=== PATIENT | male | born 1965 | race African-American/Black ===

== ENCOUNTER → 2017-07-15 | Outpatient (CLI) | payer BC ==
--- NOTE | 2017-07-15 15:01 | RADIOLOGY REPORT (SQ) ---
EXAM DESCRIPTION: U/S EXTREMITY NONVASCULAR LTD COMPLETED DATE/TIME: 07/15/2017 10:20 am REASON FOR STUDY: (L02.411)CUTANEOUS ABSCESS OF RIGHT AXILLA L02.411 CUTANEOUS ABSCESS OF RIGHT AXI LLA COMPARISON: None. TECHNIQUE: Static and real time hurst scale ultrasound Doppler spectral analysis, and color Doppler a cquired in the right axilla with comparison imaging of the left LIMITATIONS: None. FINDINGS: Ultrasound of the right axilla was performed. No adenopathy. No abscess. No focal fluid collections. No masses. Normal axillary artery and vein. Comparison imaging of the left axilla is unremarkable. IMPRESSION: NO SIGNIFICANT FINDING IN THE RIGHT AXILLA TECHNICAL DOCUMENTATION: JOB ID: [id number] [employer]- All Rights Reserved
== END ==
LOC: RAD 09:11
PROVIDERS: ATTEND Family Medicine
DX: L02.411 Cutaneous abscess of right axilla (principal)
CPT/HCPCS: 76882

== ENCOUNTER → 2017-08-11 | Outpatient (CLI) | payer BC ==
--- NOTE | 2017-08-11 09:17 | RADIOLOGY REPORT (SQ) ---
EXAM DESCRIPTION: U/S RETROPERITON (RENAL/AORTA) COMPLETED DATE/TIME: 08/11/2017 8:23 am REASON FOR STUDY: ABN KIDNEY FUNCTION STUDIES (R94.4) R94.4 ABNORMAL RESULTS OF KIDNEY FUNCTION NOEMI DIES COMPARISON: None. TECHNIQUE: Dynamic and static grayscale images acquired of the kidneys and bladder and recorded on P ACS. Additional selected color Doppler and spectral images recorded. LIMITATIONS: Sub optimal visualization left kidney. FINDINGS: RIGHT KIDNEY: Normal size. Normal echogenicity. No solid or suspicious masses. No hydronep hrosis. No calcifications. LEFT KIDNEY: Normal size. Normal echogenicity. No solid or suspicious masses. No hydronephrosis. No calcifications. BLADDER: No masses. OTHER FINDINGS: Echogenic roughly ovoid mass in the right lobe of the liver measures 5 cm. Potential hemangioma. Further dedicated liver imaging to include either CT or MRI should be considered. IMPRESSION: 1. Unremarkable appearance of the kidneys as assessed. 2. Probable large liver hemangio ma. Dedicated liver CT or MRI recommended. TECHNICAL DOCUMENTATION: JOB ID: [id number]- All Rights Reserved
== END ==
LOC: RAD 07:51
PROVIDERS: ATTEND Physician Assistant
DX: R94.4 Abnormal results of kidney function studies (principal)
CPT/HCPCS: 76770

== ENCOUNTER → 2017-08-18 | Outpatient (CLI) | payer BC ==
--- NOTE | 2017-08-18 13:56 | RADIOLOGY REPORT (SQ) ---
EXAM DESCRIPTION: MRI ABDOMEN WITHOUT COMPLETED DATE/TIME: 08/18/2017 9:29 am REASON FOR STUDY: OTHERSPECIFIED DIEASES OF LIVER K76.89 OTHER SPECIFIED DISEASES OF LIVER COMPARISON: None. TECHNIQUE: T1 N0 phase, T2, T2 fat sat weighted sequences with attention to the liver. No intraveno us contrast. Images saved to PACs. LIMITATIONS: No contrast. FINDINGS: ADRENAL GLANDS: Normal configuration. No mass. GALLBLADDER: No masses. No stones. No gallbladder wall thickening or pericholecystic fluid. LIVER AND BILIARY STRUCTURES: There are 2 well-circumscribed lesions in the liver which are bright on T2, the largest in the posterior segment of the right lobe 2.7 x 6.0 cm. No biliary dilatation. SPLEEN: Normal. PANCREAS: Normal. Peripancreatic tissues normal. PERITONEUM: No ascites, gross adenopathy or implants. OTHER: No other significant finding. IMPRESSION: Hepatic lesions, most likely benign hemangiomas, however not further characterized witho ut contrast. TECHNICAL DOCUMENTATION: JOB ID: [id number] [employer]- All Rights Reserved
== END ==
LOC: RAD 08:28
PROVIDERS: ATTEND Physician Assistant
DX: K76.89 Other specified diseases of liver (principal)
CPT/HCPCS: 74181

== ENCOUNTER → 2017-12-15 | Outpatient (CLI) | payer BC ==
--- NOTE | 2017-12-15 10:22 | RADIOLOGY REPORT (SQ) ---
EXAM DESCRIPTION: U/S ABDOMEN LIMITED W/O DOP COMPLETED DATE/TIME: 12/15/2017 8:54 am REASON FOR STUDY: LIVER MASS (R16.0) R16.0 HEPATOMEGALY, NOT ELSEWHERE CLASSIFIED COMPARISON: MRI 08/18/2017. TECHNIQUE: Dynamic and static grayscale images acquired of the abdomen and recorded on PACS. Additio nal selected color Doppler and spectral images recorded. LIMITATIONS: None. FINDINGS: PANCREAS: No masses. Visualized pancreatic duct normal caliber. LIVER: There are 2 discrete echogenic lesions in the right lobe of the liver. The larger measures ap proximately 6.2 x 5.7 x 4.2 cm. The smaller lesion measures 2.6 x 1.7 x 2 cm. No new lesion suggest ed. LIVER VASCULATURE: Normal directional flow of the main portal vein and hepatic veins. GALLBLADDER: No gallstones or wall thickening. ULTRASOUND-DETECTED CLARK'S SIGN: Negative. INTRAHEPATIC DUCTS AND COMMON DUCT:CBD and intrahepatic ducts normal caliber. No filling defects. INFERIOR VENA CAVA: Normal flow. AORTA: No aneurysm. RIGHT KIDNEY: Normal size. Normal echogenicity. No solid or suspicious masses. No hydronephrosis. No calcifications. PERITONEAL AND PLEURAL SPACES: No ascites or effusions. OTHER: No other significant finding. IMPRESSION: 1. 2 masses are once again seen in the liver. Echogenic appearance, likely hemangiomas . If there is clinical need to further confirm and characterize these lesions, dedicated liver MRI o r CT to include multiphase contrast administration would be appropriate. TECHNICAL DOCUMENTATION: JOB ID: [id number] [employer]- All Rights Reserved Reading location - IP/workstation name: [email or web address]
== END ==
LOC: RAD 07:41
PROVIDERS: ATTEND Family Medicine
DX: R16.0 Hepatomegaly, not elsewhere classified (principal)
CPT/HCPCS: 76705

== ENCOUNTER → 2018-09-27 | Outpatient (CLI) | payer BC ==
--- NOTE | 2018-09-27 12:33 | RADIOLOGY REPORT (SQ) ---
EXAM DESCRIPTION: MRI ABDOMEN COMBO COMPLETED DATE/TIME: 09/27/2018 10:59 am REASON FOR STUDY: HEMANGIOMA OF INTRA ABD D18.03 HEMANGIOMA OF INTRA-ABDOMINAL STRUCTURES K76.89 O THER SPECIFIED DISEASES OF LIVER COMPARISON: Bilateral renal ultrasound 08/11/2017 Abdominal ultrasound 12/15/2017 MRI abdomen 09/05/2017 TECHNIQUE: Multiplanar multisequence imaging performed without and with contrast including sagittal, axial and coronal T2, axial T1, axial gradient fat sat T1, axial, sagittal and coronal fat sat T1 po st contrast. CONTRAST TYPE AND DOSE: 20 mL Dot[employer]. RENAL FUNCTION: Estimated GFR 57 LIMITATIONS: None. FINDINGS: LIVER: Normal size. No dilated ducts. CBD normal. Stable benign hemangiomas in the right lobe liver, 6 x 3 cm in the posterior right lobe liver, 2 x 1.3 cm in size in the sub- diaphragmatic surface right lobe liver. There is characteristic peripheral nodular enhancement of these lesions wi th contrast. SPLEEN: Normal size. No focal lesions. PANCREAS: No masses. No adjacent inflammation or peripancreatic fluid collections. Pancreatic duct no t dilated. GALLBLADDER: No masses. No stones. No gallbladder wall thickening or pericholecystic fluid. ADRENAL GLANDS: No significant masses or asymmetry. RIGHT KIDNEY AND URETER: No masses. No hydronephrosis. LEFT KIDNEY AND URETER: No masses. No hydronephrosis. AORTA AND VESSELS: No aneurysm. No dissection. Renal arteries, SMA, celiac without stenosis. RETROPERITONEUM: No retroperitoneal adenopathy, hemorrhage or masses. BOWEL: Not well seen ABDOMINAL WALL AND PERITONEUM: No hernias. No free fluid. BONES: No acute or significant findings. OTHER: No other significant finding. IMPRESSION: Benign hemangiomas in the right lobe liver, similar compared to previous. TECHNICAL DOCUMENTATION: JOB ID: [id number] [employer]- All Rights Reserved Reading location - IP/workstation name: [email or web address]
== END ==
LOC: RAD 09:33
PROVIDERS: ATTEND Internal Medicine Gastroenterology
DX: D18.03 Hemangioma of intra-abdominal structures (principal); K76.89 Other specified diseases of liver
CPT/HCPCS: 82565; 74183; A9576